=== PATIENT | male | born 1980 | race Caucasian/White ===

== ENCOUNTER 2019-07-10 12:03 | Emergency (ER) | payer BC, OTHER ==
[~2019-07-10] VITALS: Ht 172.7 cm; Wt 63.5 kg
[2019-07-10] MEDS ORDERED: DEXAMETHASONE 4 MG TABLET PO STA (12:24)
[2019-07-10 12:25] VITALS: BP 116/74
--- NOTE | 2019-07-10 12:28 | PHYS DOC ---
Past Medical History Past Medical History: Asthma Past Surgical History: No Surgical History Alcohol Use: Occasionally Drug Use: None Adult General Chief Complaint Chief Complaint: ASTHMA HPI HPI Patient is a 39 year old male who presents with cough and shortness breath that started this morning. Patient states he has history of asthma and is out of his inhaler. Denies Fever or any other complaints. Review of Systems Review of Systems Constitutional: Denies fever or chills [] Eyes: Denies change in visual acuity, redness, or eye pain [] HENT: Denies nasal congestion or sore throat [] Respiratory: Reports cough and shortness of breath [] Cardiovascular: No additional information not addressed in HPI [] GI: Denies abdominal pain, nausea, vomiting, bloody stools or diarrhea [] : Denies dysuria or hematuria [] Musculoskeletal: Denies back pain or joint pain [] Integument: Denies rash or skin lesions [] Neurologic: Denies headache, focal weakness or sensory changes [] Endocrine: Denies polyuria or polydipsia [] Complete systems were reviewed and found to be within normal limits, except as documented in this note. Current Medications Current Medications Current Medications Medications (Trade) Dose Ordered Sig/Aminah Start Time Stop Time Status Last Admin Dose Admin Albuterol/ Ipratropium (Duoneb) 3 ml 1X ONCE 07/10/19 12:30 07/10/19 12:31 DC 07/10/19 12:35 3 ML Dexamethasone (Decadron) 10 mg 1X STAT 07/10/19 12:24 07/10/19 12:27 DC 07/10/19 12:37 10 MG Allergies Allergies Allergies Coded Allergies Type Severity Reaction Last Updated Verified egg Allergy Intermediate 10/20/15 Yes peanut Allergy Intermediate 10/20/15 Yes Physical Exam Physical Exam Constitutional: Well developed, well nourished, no acute distress, non-toxic appearance. [] HENT: Normocephalic, atraumatic, bilateral external ears normal, oropharynx moist, no oral exudates, nose normal. [] Eyes: PERRLA, EOMI, conjunctiva normal, no discharge. [] Neck: Normal range of motion, no tenderness, supple, no stridor. [] Cardiovascular:Heart rate regular rhythm, no murmur [] Lungs & Thorax: Bilateral breath sounds diminished in all lobes with wheezing. Abdomen: Bowel sounds normal, soft, no tenderness, no masses, no pulsatile masses. [] Skin: Warm, dry, no erythema, no rash. [] Neurologic: Alert and oriented X 3, normal motor function, normal sensory function, no focal deficits noted. [] Psychologic: Affect normal, judgement normal, mood normal. [] Current Patient Data Vital Signs Vital Signs Date Time Temp Pulse Resp B/P (MAP) Pulse Ox O2 Delivery O2 Flow Rate FiO2 07/10/19 12:36 Room Air 07/10/19 12:25 97.8 110 22 116/74 (88) 97 97.8 EKG EKG [] Radiology/Procedures Radiology/Procedures [] Course & Med Decision Making Course & Med Decision Making Pertinent Labs and Imaging studies reviewed. (See chart for details) Appears to be having asthma exacerbation. Will give Decadron and Duoneb. Patient is feeling better after breathing treatment. Will d/c home with inhaler and have follow up with PCP. Dragon Disclaimer Dragon Disclaimer This electronic medical record was generated, in whole or in part, using a voice recognition dictation system. Departure Departure Impression: Primary Impression: Asthma Disposition: 01 HOME, SELF-CARE Condition: STABLE Referrals: NO PCP (PCP) Patient Instructions: Asthma Attacks, Prevention, Asthma Prevention-Brief, Asthma, Adult Additional Instructions: Thank you for visiting [facility]. We appreciate you trusting us with your care. If any additional problems come up don't hesitate to return to visit us. Please follow up with your primary care provider so they can plan additional care if needed and know about the problem that you had. If symptoms worsen come back to the Emergency Department. Any concerning symptoms that start such as chest pain, shortness of air, weakness or numbness on one side of the body, running high fevers or any other concerning symptoms return to the ER. Please fill your medications at any pharmacy and follow the prescription instructions. Scripts Albuterol Sulfate (PROAIR HFA INHALER) 8.5 Gm Hfa.aer.ad 2 PUFF IH PRN Q4-6HRS PRN for wheezing for 21 Days, #1 INHALER 0 Refills Prov: HUBERT FIGUEROA AUDIO VISUAL SECRETARY 07/10/19 Problem Qualifiers Primary Impression: Asthma Asthma severity: moderate Asthma persistence: persistent Asthma complication type: with acute exacerbation Qualified Codes: J45.41 - Moderate persistent asthma with (acute) exacerbation HUBERT FIGUEROA APRN Jul 10, 2019 12:28
[2019-07-10] MEDS ORDERED: IPRATRPIUM/ALBUTEROL 0.5/2.5MG 3 ML NEBU. NEB ONE (12:30)
[2019-07-10] MEDS ORDERED: ALBU2.5V8 IH (12:57)
== END 2019-07-10 13:17 | disposition home or self-care (01) ==
LOC: ER 12:03
DX: J45.41 Moderate persistent asthma with (acute) exacerbation (principal); Z91.012 Allergy to eggs; Z91.010 Allergy to peanuts
CPT/HCPCS: 94640; 99283; J7620; J8540

== ENCOUNTER 2019-11-01 06:45 | Emergency (ER) | payer SELFPAY ==
[~2019-11-01] VITALS: Ht 175.3 cm; Wt 64.0 kg
[~2019-11-01 06:45] MED LIST: ALBU2.5V8 IH
--- NOTE | 2019-11-01 07:12 | PHYS DOC ---
Past Medical History Past Medical History: Asthma Past Surgical History: Other Additional Past Surgical Histo: NECK FUSION Smoking Status: Current Every Day Smoker Alcohol Use: Occasionally Drug Use: None General Adult EDM: Chief Complaint: ASTHMA HPI: HPI: Patient is a 39-year-old male, with a history of asthma, current smoker, who presents to the emergency department for evaluation. He states he has had trouble breathing on and off over the past month, but usually his inhaler will help, but this morning he has not had any relief with the use of his inhaler. He has had a mild cough productive of clear sputum, but has not had any fever, nasal congestion, any pain, including any pleuritic pain. He states his symptoms feel similar to his prior asthma attacks. He denies any nausea, vomiting, headache, chest pain, or any other new or concerning symptoms. Patient has had no recent travel, or known COVID-19 exposures. Review of Systems: Review of Systems: Constitutional: Denies fever or chills. [] Eyes: Denies change in visual acuity. [] HENT: Denies nasal congestion or sore throat. [] Respiratory: as per HPI [] Cardiovascular: Denies chest pain or edema. [] GI: Denies abdominal pain, nausea, vomiting, bloody stools or diarrhea. [] : Denies dysuria. [] Musculoskeletal: Denies back pain or joint pain. [] Integument: Denies rash. [] Neurologic: Denies headache, focal weakness or sensory changes. [] Heart Score: Risk Factors: Risk Factors: DM, Current or recent (<one month) smoker, HTN, HLP, family history of CAD, obesity. Risk Scores: Score 0 - 3: 2.5% MACE over next 6 weeks - Discharge Home Score 4 - 6: 20.3% MACE over next 6 weeks - Admit for Clinical Observation Score 7 - 10: 72.7% MACE over next 6 weeks - Early Invasive Strategies Current Medications: Current Medications Medications (Trade) Dose Ordered Sig/Aminah Start Time Stop Time Status Last Admin Dose Admin Albuterol Sulfate (Ventolin Neb Soln) 2.5 mg 1X ONCE 11/01/19 07:30 11/01/19 07:31 Allergies: Allergies: Allergies Coded Allergies Type Severity Reaction Last Updated Verified egg Allergy Intermediate 10/20/15 Yes peanut Allergy Intermediate 10/20/15 Yes Physical Exam: PE: PHYSICAL EXAM: CONSTITUTIONAL: Well developed, well nourished HEAD: normocephalic, atraumatic EENT: PERRL, EOMI. Conjunctivae normal color, sclerae non-icteric; moist mucous membranes. NECK: Supple, non-tender; no meningismus. LUNGS: There are globally diminished breath sounds, with some coarse expiratory wheezes, diffusely scattered. No rales or rhonchi. HEART: Regular rate and rhythm, no murmur CHEST: No deformity; non-tender ABDOMEN: The abdomen is soft, and non-tender, no masses or bruits. EXTREM: Normal ROM; no deformity, no calf tenderness. Normal pulses palpable in all extremities. There is no pedal edema. SKIN: No rash; no diaphoresis NEURO: Alert; normal speech and cognition; CN's grossly intact; strength grossly intact without focal deficit. BACK: No CVA TTP. EKG: EKG: [] Radiology/Procedures: Radiology/Procedures: PROCEDURE: CHEST AP ONLY EXAM: CHEST ONE VIEW. HISTORY: Shortness of breath, asthma. COMPARISON: 08/03/2010. FINDINGS: A frontal view of the chest is obtained. There are no confluent infiltrates. There is no pneumothorax or pleural effusion. The heart is not enlarged. The extreme apices are partially excluded. IMPRESSION: 1. No confluent infiltrates.[] Course & Med Decision Making: Course & Med Decision Making Pertinent Imaging studies reviewed. (See chart for details) [] 8:25 AM: The patient's condition remains stable, he is feeling significantly better after breathing treatments. I discussed smoking cessation, the need for close PCP follow-up (the patient will be given local provider resources), and return precautions in detail. Jean Carlos Disclaimer: Jean Carlos Disclaimer: This electronic medical record was generated, in whole or in part, using a voice recognition dictation system. Departure Departure Impression: Primary Impression: Acute asthma exacerbation Disposition: HOME, SELF-CARE Condition: STABLE Referrals: NO PCP (PCP) Patient Instructions: Asthma Prevention-Brief, Asthma, Acute Bronchospasm, Smoking Cessation Scripts Albuterol Sulfate (PROAIR HFA INHALER) 8.5 Gm Hfa.aer.ad 1 PUFF INH PRN Q6HRS PRN for SHORTNESS OF BREATH, #1 INHALER 0 Refills Prov: MACHO PAULA MD 11/01/19 Prednisone (PREDNISONE) 20 Mg Tablet 40 MG PO DAILY for 5 Days, #10 TAB Prov: MACHO PAULA MD 11/01/19 MACHO PAULA MD Nov 01, 2019 07:12
[2019-11-01] MEDS ORDERED: predniSONE 20 MG TABLET PO ONE (07:15)
[2019-11-01] MEDS ORDERED: IPRATRPIUM/ALBUTEROL 0.5/2.5MG 3 ML NEBU. NEB ONE (07:15)
[2019-11-01] MEDS ORDERED: ALBUTEROL SULFATE 2.5 MG/3 ML NEBU. NEB ONE (07:30)
--- NOTE | 2019-11-01 07:44 | RAD ---
EXAM: CHEST ONE VIEW. HISTORY: Shortness of breath, asthma. COMPARISON: 08/03/2010. FINDINGS: A frontal view of the chest is obtained. There are no confluent infiltrates. There is no pneumothorax or pleural effusion. The heart is not enlarged. The extreme apices are partially excluded. IMPRESSION: 1. No confluent infiltrates. Electronically signed by: Manuela Rankin MD (11/01/2019 7:42 AM) [id number]
[2019-11-01] MEDS ORDERED: PRED20TA PO (08:25)
[2019-11-01] MEDS ORDERED: ALBU2.5V8 INH (08:25)
[2019-11-01 08:35] VITALS: BP 110/72
== END 2019-11-01 08:51 | disposition home or self-care (01) ==
LOC: ER 06:45
DX: J45.901 Unspecified asthma with (acute) exacerbation (principal); R05 Cough; J45.909 Unspecified asthma, uncomplicated; F17.200 Nicotine dependence, unspecified, uncomplicated; Z98.890 Other specified postprocedural states; Z91.012 Allergy to eggs; Z91.010 Allergy to peanuts
CPT/HCPCS: 71045; 94640; 99284; J7512; J7613

== ENCOUNTER 2020-05-15 10:58 | Emergency (ER) | payer SELFPAY ==
[~2020-05-15] VITALS: Ht 175.3 cm; Wt 62.9 kg
[~2020-05-15 10:58] MED LIST changes: +ALBU2.5V8 INH; +PRED20TA PO
--- NOTE | 2020-05-15 12:35 | ED.ADGEN ---
Past Medical History Past Medical History: Asthma, Bronchitis Additional Past Medical Histor: seasonal allergies Past Surgical History: Other Additional Past Surgical Histo: NECK FUSION Smoking Status: Current Every Day Smoker Additional Information: 1.0 ppd Alcohol Use: Occasionally Drug Use: None General Adult EDM: Chief Complaint: ASTHMA HPI: HPI: Patient is a 39 year old male who presents to the emergency room with complaints of asthma problems for the last 4 weeks. Patient states that he has had shortness of breath with a dry cough and intermittent wheezing. He reports that he is out of his albuterol inhaler. Patient states he does not have a primary care doctor that he would like referral to a primary care physician at today's visit. He denies any chest pain, body aches, fatigue, nausea, vomiting, diarrhea, abdominal pain, sore throat, headache, dizziness, nasal congestion, runny nose, or ear pain. The patient currently denies any pain. Review of Systems: Review of Systems: Complete ROS is negative unless otherwise noted in HPI. Current Medications: Current Medications Medications (Trade) Dose Ordered Sig/Aminah Start Time Stop Time Status Last Admin Dose Admin Albuterol Sulfate (Ventolin Neb Soln) 2.5 mg 1X ONCE 05/15/20 13:00 05/15/20 13:01 DC 05/15/20 12:41 2.5 MG Allergies: Allergies: Allergies Coded Allergies Type Severity Reaction Last Updated Verified egg Allergy Intermediate 10/20/15 Yes peanut Allergy Intermediate 10/20/15 Yes Physical Exam: PE: See Above Constitutional: Well developed, well nourished, no acute distress, non-toxic appearance. [] HENT: Normocephalic, atraumatic, bilateral external ears normal, nose normal. [] Eyes: PERRLA, EOMI, conjunctiva normal, no discharge. [] Neck: Normal range of motion, no stridor. [] Cardiovascular:Heart rate regular rhythm Lungs & Thorax: Respirations even and unlabored, no retractions, no respiratory distress, lungs clear in the upper lobes, diminished in lower lobes, no wheezes Skin: Warm, dry, no erythema, no rash. [] Extremities: No cyanosis, ROM intact, no edema. [] Neurologic: Alert and oriented X 3, no focal deficits noted. [] Psychologic: Affect normal, judgement normal, mood normal. [] Current Patient Data: Vital Signs: Vital Signs Date Time Temp Pulse Resp B/P (MAP) Pulse Ox O2 Delivery O2 Flow Rate FiO2 05/15/20 13:27 89 112/72 (85) 96 Room Air 05/15/20 11:57 97.8 97.8 05/15/20 11:11 20 EKG: EKG: [] Heart Score: Risk Factors: Risk Factors: DM, Current or recent (<one month) smoker, HTN, HLP, family history of CAD, obesity. Risk Scores: Score 0 - 3: 2.5% MACE over next 6 weeks - Discharge Home Score 4 - 6: 20.3% MACE over next 6 weeks - Admit for Clinical Observation Score 7 - 10: 72.7% MACE over next 6 weeks - Early Invasive Strategies Radiology/Procedures: Radiology/Procedures: PROCEDURE: CHEST AP ONLY Single view chest dated 05/15/2020: 11/01/2019 Clinical Indication: Dry cough for 4 weeks. Findings: Single upright portable exam of the chest was performed. Heart size and mediastinal contours are within normal limits given technique. The lungs are clear without evidence of focal consolidation. Vascular interstitium is within normal limits. Impression:: Negative portable chest. [] Course & Med Decision Making: Course & Med Decision Making I have reviewed the PA/POSTAL INSPECTOR's note and Plan of Care. I was available for consultation as needed during the patient's visit in the emergency department. I agree with the clinical impression, plans and disposition.Pertinent Labs and Imaging studies reviewed. (See chart for details) [] Dragon Disclaimer: Dragon Disclaimer: This electronic medical record was generated, in whole or in part, using a voice recognition dictation system. Departure Departure Impression: Primary Impression: Asthma Disposition: 01 DC HOME SELF CARE/HOMELESS Referrals: NO PCP (PCP) Patient Instructions: Asthma Attacks, Prevention, Asthma, Adult, [id number] Additional Instructions: Fill prescription(s) and use as directed. Avoid airway triggers such as smoke, fragrance, dust, and pollen. May take [id number] cough suppressants as needed. Follow-up with your primary care doctor if symptoms persist, return to the ER if symptoms worsen. [facility] [address] [place] [address] [facility] [address] [place] [address] [facility] [address] [place] [address] [facility] [address] [place] [address] [facility] [address] [place] [address] [address] [place] [address] [address] [place] [address] [facility] [address] [place] [address] [facility] [address] [place] [address] [facility] [address] [place] [address] Scripts Albuterol Sulfate (Proair Hfa) 8.5 Gm Hfa.aer.ad 2 PUFF IH PRN Q4-6HRS PRN for wheezing for 21 Days, #1 INHALER 1 Refill Prov: PEPPER POLO TOOLING MECHANIC 05/15/20 Problem Qualifiers Primary Impression: Asthma Asthma severity: mild Asthma persistence: intermittent Asthma complication type: uncomplicated Qualified Codes: J45.20 - Mild intermi ttent asthma, uncomplicated PEPPER POLO TOOLING MECHANIC May 15, 2020 12:35 JASMINA BRIZUELA MD May 16, 2020 06:03
--- NOTE | 2020-05-15 12:49 | RAD ---
Single view chest dated 05/15/2020: 11/01/2019 Clinical Indication: Dry cough for 4 weeks. Findings: Single upright portable exam of the chest was performed. Heart size and mediastinal contours are within normal limits given technique. The lungs are clear without evidence of focal consolidation. Vascular interstitium is within normal limits. Impression:: Negative portable chest. Electronically signed by: Ezequiel Bustamante MD (05/15/2020 12:46 PM) [id number]
[2020-05-15] MEDS ORDERED: ALBUTEROL SULFATE 2.5 MG/3 ML NEBU. NEB ONE (13:00)
[2020-05-15 13:27] VITALS: BP 112/72
[2020-05-15] MEDS ORDERED: ALBU2.5V8 IH (13:27)
== END 2020-05-15 14:00 | disposition home or self-care (01) ==
LOC: ER 10:58
DX: J45.909 Unspecified asthma, uncomplicated (principal); R05 Cough; F17.200 Nicotine dependence, unspecified, uncomplicated; Z98.890 Other specified postprocedural states; Z91.010 Allergy to peanuts; Z91.012 Allergy to eggs
CPT/HCPCS: 71045; 94640; 99285; J7613